=== PATIENT | female | born 1940 | race Caucasian/White ===

== ENCOUNTER 2020-09-13 05:22 | Observation (INO) | payer MEDICARE ==
[2020-09-10 12:10] LABS: BASOPHILS % 0.7 % (0.0-1.0); EOSINOPHILS # (AUTO) 0.3 (0.0-0.4); EOSINOPHILS % 5.2 % (0.0-6.0); HEMATOCRIT 36.6 % (34.2-44.1); HEMOGLOBIN 11.3 g/dL (12.0-16.0); LYMPHOCYTES # (AUTO) 1.2 (1.0-3.2); LYMPHOCYTES % 19.8 % (18.0-39.1); MEAN CORPUSCULAR HEMOGLOBIN 26.8 pg (28-32); MEAN CORPUSCULAR HGB CONC 30.9 g/dL (31-35); MEAN CORPUSCULAR VOLUME 86.7 fL (81-99); MONOCYTES # (AUTO) 0.4 (0.2-0.8); MONOCYTES % 7.2 % (4.4-11.3); NEUTROPHILS % 66.4 % (38.7-80.0); PLATELET COUNT 226 x10e3/uL (140-360); RED BLOOD COUNT 4.22 x10e6/uL (3.6-5.1)
[2020-09-10 12:25] LABS: INR 0.96; PROTHROMBIN TIME 13.3 seconds (11.9-14.5)
[2020-09-10 12:26] LABS: PARTIAL THROMBOPLASTIN TIME 24.5 seconds (23.8-35.5)
[2020-09-10 12:32] LABS: ANION GAP 16.2 mmol/L (8-16); CALCIUM 9.2 mg/dL (8.4-10.2); CREATININE, SERUM 1.2 mg/dL (0.57-1.11); POTASSIUM 4.2 mmol/L (3.5-5.1)
[~2020-09-13] VITALS: Ht 160 cm; Wt 68.0 kg
[~2020-09-13 05:22] MED LIST: ALPHA LIPOIC A200 MG PO; AMLODIPINE BESY10 MG PO; ASPIR 8181 MG PO; CITALOPRAM HBR10 MG PO; CITRACAL + D E1 EACH PO; FENOFIBRATE134 MG PO; GLIMEPIRIDE2 MG PO; GLIMEPIRIDE4 MG PO; HYDROCHLOROTHIA25 MG PO; JANUMET 50-1,01 EACH PO; LANTUS100 UNITS/ SQ; LEVAQUIN500 MG PO; LEVOTHYROXINE88 MCG PO; LOSARTAN POTAS100 MG PO; LOVAZA1 GM PO; MECLIZINE HCL25 MG PO; MELOXICAM7.5 MG PO; METOPROLOL TART25 MG PO; METOPROLOL TART50 MG PO; PRAVASTATIN SOD40 MG PO; PREDNISONE10 MG PO; VITAMIN C1000 MG PO
[2020-09-13] MEDS ORDERED: CEFAZOLIN SOD 1 GM/NS 50ML 100 ML IV ONE (05:50)
[2020-09-13] MEDS ORDERED: LIDOCAINE 1% W/EPINEPHRINE 20 ML VIAL ONE (06:57)
[2020-09-13] MEDS ORDERED: VANCOMYCIN HCL 1 GM VIAL ONE (06:57)
[2020-09-13] MEDS ORDERED: THROMBIN FOR SOLN 5,000 UNIT VIAL ONE (06:57)
[2020-09-13] MEDS ORDERED: IBUPROFEN 800MG/ 200ML 200 ML IV ONE (07:24)
[2020-09-13] MEDS ORDERED: ACETAMINOPHEN 1000 MG/100 ML 100 ML IV ONE (07:24)
[2020-09-13] MEDS ORDERED: LIDOCAINE HCL (LTA) 4 ML SOLN ONE (07:24)
[2020-09-13] MEDS ORDERED: HYDROCODON-ACE1 EA12 PO (08:39)
[2020-09-13] MEDS ORDERED: ONDANSETRON HCL INJ 2MG/ML 2ML 2 MG/ML VIAL IV PRN (08:45)
[2020-09-13] MEDS ORDERED: ACETAMINOPHEN 325 MG TAB PO PRN (08:45)
[2020-09-13] MEDS ORDERED: PROMETHAZINE HCL (IM) 25 MG/ML VIAL IM PRN (08:45)
[2020-09-13] MEDS ORDERED: CEPACOL SORE THROAT LOZENGES PO PRN (08:45)
[2020-09-13] MEDS ORDERED: MORPHINE SULFATE 5 MG/ML VIAL IM PRN (08:45)
[2020-09-13] MEDS ORDERED: CARISOPRODOL 350 MG TAB PO PRN (08:45)
[2020-09-13] MEDS ORDERED: NON-FORMULARY MEDICATION (Meclizine Hcl 25 MG) PO PRN (08:45)
[2020-09-13] MEDS ORDERED: MAGNESIUM/ALUMINUM/SIMETHICONE 30 ML UDC PO PRN (08:45)
[2020-09-13] MEDS ORDERED: HYDROMORPHONE 2MG/ML 2 MG/ML ML IV PRN (08:45)
[2020-09-13] MEDS: METOPROLOL TARTRATE 25 MG TAB PO SCH ×2 (09:00→17:34)
[2020-09-13] MEDS ORDERED: HYDROCHLOROTHIAZIDE 25 MG TAB PO SCH (09:00)
[2020-09-13] MEDS ORDERED: CALCIUM CARB PO SCH (09:00)
[2020-09-13] MEDS: LOSARTAN POTASSIUM 100 MG TAB PO SCH (09:00)
[2020-09-13] MEDS ORDERED: [UNRECOGNIZED DRUG - OTHER] PO SCH (09:00)
[2020-09-13] MEDS ORDERED: ASCORBIC ACID 500 MG TAB PO SCH (09:00)
[2020-09-13] MEDS: ALPHA LIPOIC ACID 200 MG PO SCH ×2 (09:00→17:00)
[2020-09-13] MEDS ORDERED: NON-FORMULARY MEDICATION (Sitagliptin Phos/Metformin Hcl (Janumet 50-1,000 Mg Tablet) 1 TA PO SCH (09:00)
[2020-09-13] MEDS ORDERED: VITAMIN D3 PO SCH (09:00)
[2020-09-13] MEDS: AMLODIPINE BESYLATE 10 MG TAB PO SCH (09:00)
[2020-09-13] MEDS ORDERED: CIT PO SCH (09:00)
[2020-09-13] MEDS ORDERED: NON-FORMULARY MEDICATION (Fenofibrate,Micronized (Fenofibrate) 134 MG) PO SCH (09:00)
[2020-09-13] MEDS ORDERED: FENTANYL CITRATE/PF 100MCG/2 ML INJ ONE ×2 (09:27→13:38)
[2020-09-13 10:01] VITALS: BP 142/54
[2020-09-13] MEDS: LEVOTHYROXINE SODIUM 88 MCG TAB PO SCH (11:11)
[2020-09-13] MEDS ORDERED: GLIMEPIRIDE 2 MG TAB PO SCH (11:30)
[2020-09-13] MEDS ORDERED: MECLIZINE HCL 12.5 MG TAB PO PRN (11:30)
[2020-09-13] MEDS ORDERED: LACTATED RINGER'S 1,000 ML ONE (11:38)
[2020-09-13] MEDS ORDERED: HUMALOG100 UNIT/3 SQ (12:16)
[2020-09-13] MEDS ORDERED: BENZONATATE100 MG PO (12:16)
[2020-09-13] MEDS ORDERED: MINIPRESS2 MG PO (12:16)
[2020-09-13] MEDS ORDERED: MELOXICAM7.5 MG PO (12:16)
[2020-09-13 12:30] VITALS: BP 141/93
[2020-09-13] MEDS ORDERED: BENZONATATE 100 MG CAP PO PRN (12:30)
[2020-09-13] MEDS ORDERED: DEXTROSE 50% SYRINGE 50 ML IV PRN (12:30)
[2020-09-13] MEDS: LACTATED RINGER'S 1,000 ML IV SCH ×2 (12:30→17:05)
[2020-09-13] MEDS: INSULIN LISPRO 100 UNIT/1 ML 3ML VIAL SQ SCH ×2 (13:00→17:48)
[2020-09-13 13:03] VITALS: BP 141/93
[2020-09-13] MEDS ORDERED: PROPOFOL IV EMULSION 10 MG/ML 20 ML VIAL ONE (13:45)
[2020-09-13] MEDS ORDERED: LIDOCAINE HCL 2% LOCAL INJ 5 ML SDV VIAL INJ ONE (13:45)
[2020-09-13] MEDS ORDERED: SEVOFLURANE INHAL SOLN 250 ML PEN BTL ONE (13:45)
[2020-09-13] MEDS ORDERED: GLYCOPYRROLATE INJ 0.2 MG/ML VIAL ONE (13:45)
[2020-09-13] MEDS ORDERED: ROCURONIUM BROMIDE 10 MG/ML 5ML VIAL IV ONE (13:45)
[2020-09-13] MEDS ORDERED: ONDANSETRON HCL INJ 2MG/ML 2ML 2 MG/ML VIAL ONE (13:45)
[2020-09-13] MEDS ORDERED: LIDOCAINE HCL 2% JELLY 5 ML TUBE ONE (13:45)
[2020-09-13] MEDS ORDERED: DEXAMETHASONE SOD PHOS INJ 4 MG/ML VIAL ONE (13:45)
[2020-09-13] MEDS ORDERED: NEOSTIGMINE 1 MG/ML 10ML VIAL ONE (13:45)
[2020-09-13] MEDS ORDERED: NITROGLYCERIN 0.4 MG SUBL SL PRN (14:30)
[2020-09-13 16:03] VITALS: BP 148/63
[2020-09-13] MEDS: CEFAZOLIN SOD 1 GM/NS 50ML 50 ML IV SCH (17:29)
[2020-09-13] MEDS: METFORMIN HCL 500 MG TAB PO SCH (17:30)
[2020-09-13] MEDS: SITAGLIPTIN 100 MG TAB PO SCH (17:33)
[2020-09-13] MEDS: PRAZOSIN HCL 1 MG CAP PO SCH (17:35)
[2020-09-13] MEDS: OYST-CAL-D 500MG TABLET PO SCH (17:36)
[2020-09-13 19:22] VITALS: BP 152/64
[2020-09-13 20:00] VITALS: BP 152/64
[2020-09-13] MEDS ORDERED: ZOLPIDEM TARTRATE 5 MG TAB PO PRN (21:00)
[2020-09-13] MEDS: OXYCODONE/ACETAMINOPHEN 5-325 1 EACH TABLET PO PRN (21:25)
[2020-09-14 00:15] VITALS: BP 179/69
[2020-09-14] MEDS: LACTATED RINGER'S 1,000 ML IV SCH (00:52)
[2020-09-14 04:00] VITALS: BP 164/63
[2020-09-14] MEDS: LEVOTHYROXINE SODIUM 88 MCG TAB PO SCH (06:00)
[2020-09-14] MEDS: INSULIN LISPRO 100 UNIT/1 ML 3ML VIAL SQ SCH (07:30)
[2020-09-14] MEDS ORDERED: INSULIN GLARGINE 100 UNITS/ML VIAL SQ SCH (07:30)
[2020-09-14 08:00] VITALS: BP 150/61
[2020-09-14 09:00] VITALS: BP 150/61
[2020-09-14] MEDS ORDERED: HYDROCHLOROTHIAZIDE 25 MG TAB PO SCH (09:00)
[2020-09-14] MEDS ORDERED: ASPIRIN 81 MG CHEW TAB PO SCH (09:00)
[2020-09-14] MEDS ORDERED: FENOFIBRATE 145 MG TAB PO SCH (09:00)
[2020-09-14] MEDS ORDERED: INSULIN LISPRO 60 UNIT SQ SCH (09:00)
[2020-09-14] MEDS: ALPHA LIPOIC ACID 200 MG PO SCH (09:00)
[2020-09-14] MEDS: CEFAZOLIN SOD 1 GM/NS 50ML 50 ML IV SCH ×2 (09:20)
[2020-09-14] MEDS: OXYCODONE/ACETAMINOPHEN 5-325 1 EACH TABLET PO PRN (09:24)
[2020-09-14] MEDS: METFORMIN HCL 500 MG TAB PO SCH (09:24)
[2020-09-14] MEDS: SITAGLIPTIN 100 MG TAB PO SCH (09:25)
[2020-09-14] MEDS: LOSARTAN POTASSIUM 100 MG TAB PO SCH (09:26)
[2020-09-14] MEDS: METOPROLOL TARTRATE 25 MG TAB PO SCH (09:26)
[2020-09-14] MEDS: AMLODIPINE BESYLATE 10 MG TAB PO SCH (09:27)
[2020-09-14] MEDS: OYST-CAL-D 500MG TABLET PO SCH (09:27)
[2020-09-14] MEDS: PRAZOSIN HCL 1 MG CAP PO SCH (09:27)
== END 2020-09-14 10:45 | disposition home or self-care (01) ==
LOC: OR 05:22 → PACU V 08:37 → MED/SURG 09:48
PROVIDERS: ADMIT Neurological Surgery; ATTEND Neurological Surgery
DX: M51.16 Intervertebral disc disorders with radiculopathy, lumbar region (principal); Z88.2 Allergy status to sulfonamides; Z88.8 Allergy status to other drugs, medicaments and biological substances; E11.9 Type 2 diabetes mellitus without complications; I10 Essential (primary) hypertension; E78.5 Hyperlipidemia, unspecified; K27.9 Peptic ulcer, site unspecified, unspecified as acute or chronic, without hemorrhage or perforation; Z01.818 Encounter for other preprocedural examination; I25.10 Atherosclerotic heart disease of native coronary artery without angina pectoris; Z79.4 Long term (current) use of insulin
CPT/HCPCS: 36415 ×2; 63042; 71046; 72020; 80048; 82948; 85025; 85610; 85730; 86850; 86900; 88304; 88311; 93005; G0378 ×2; J0131; J0690 ×2; J1170; J3010; J3370; J7121; J1100; J2001; J2405; J2710

== ENCOUNTER 2020-12-20 12:39 | Emergency (ER) | payer MEDICARE ==
[~2020-12-20] VITALS: Ht 160 cm; Wt 68.0 kg
[~2020-12-20 12:39] MED LIST changes: +BENZONATATE100 MG PO; +HUMALOG100 UNIT/3 SQ; +HYDROCODON-ACE1 EA12 PO; +MINIPRESS2 MG PO
[2020-12-20 13:23] LABS: BASOPHILS % 0.7 % (0.0-1.0); EOSINOPHILS # (AUTO) 0.2 (0.0-0.4); EOSINOPHILS % 3.6 % (0.0-6.0); HEMATOCRIT 33.4 % (34.2-44.1); HEMOGLOBIN 10.1 g/dL (12.0-16.0); LYMPHOCYTES % 17.7 % (18.0-39.1); MEAN CORPUSCULAR HEMOGLOBIN 26.6 pg (28-32); MEAN CORPUSCULAR HGB CONC 30.2 g/dL (31-35); MEAN CORPUSCULAR VOLUME 87.9 fL (81-99); MONOCYTES # (AUTO) 0.3 (0.2-0.8); MONOCYTES % 5.5 % (4.4-11.3); NEUTROPHILS # (AUTO) 4.2 (2.1-6.9); NEUTROPHILS % 71.8 % (38.7-80.0); PLATELET COUNT 261 x10e3/uL (140-360); RED CELL DISTRIBUTION WIDTH 15.4 % (11.7-14.4)
[2020-12-20 13:27] LABS: CLARITY,URINE CLEAR (CLEAR); COLOR,URINE YELLOW (YELLOW); KETONES,URINE NEGATIVE (NEGATIVE); LEUKOCYTE ESTERASE ,URINE NEGATIVE (NEGATIVE); NITRITE,URINE NEGATIVE (NEGATIVE); PROTEIN,URINE DIPSTICK >=300 (NEGATIVE); URINE UROBILINOGEN 0.2 mg/dL (0.2 - 1)
[2020-12-20 13:38] LABS: BACTERIA,URINE FEW /HPF; EPITHELIAL CELLS,URINE FEW /LPF; RBC,URINE 0-5 /HPF (0-5)
[2020-12-20 13:40] LABS: ALBUMIN 3.8 g/dL (3.5-5.0); ALBUMIN/GLOBULIN RATIO 1.3 (0.8-2.0); ANION GAP 15.9 mmol/L (8-16); CALCIUM 9.5 mg/dL (8.4-10.2); CREATININE, SERUM 1.53 mg/dL (0.57-1.11); POTASSIUM 4.9 mmol/L (3.5-5.1)
[2020-12-20 17:54] VITALS: BP 134/81
== END 2020-12-20 17:54 | disposition home or self-care (01) ==
LOC: ER 12:45
DX: R18.8 Other ascites (principal); J90 Pleural effusion, not elsewhere classified; R14.0 Abdominal distension (gaseous); I10 Essential (primary) hypertension; E11.9 Type 2 diabetes mellitus without complications; Z79.4 Long term (current) use of insulin; E78.5 Hyperlipidemia, unspecified
CPT/HCPCS: 36415; 74176; 80053; 81001; 82948; 83690; 85025; 93005; 99284